=== PATIENT | female | born 1990 | race Hispanic/Latino ===

== ENCOUNTER 2022-10-21 11:16 | Inpatient (IN) | payer OTHER ==
[~2022-10-21] VITALS: Ht 182.9 cm; Wt 180.4 kg
[2022-10-21] MEDS ORDERED: ONDANSETRON 4MG INJ IV PRN (15:30)
[2022-10-21] MEDS ORDERED: ACETAMINOPHEN 325 MG TAB PO PRN ×2 (15:30)
[2022-10-21] MEDS: 0.9%NACL 1000ML 1,000 ML IV SCH (15:55)
[2022-10-21 16:01] LABS: BASOPHILS % (AUTO) 0.3 % (0.0-5.0); EOSINOPHILS % (AUTO) 0.5 % (0.0-8.0); HEMATOCRIT 33.2 % (36-48); LYMPHOCYTES % (AUTO) 20.6 % (21.0-51.0); MEAN CORPUSCULAR HEMOGLOBIN 23.6 pg (27.0-33.0); MEAN CORPUSCULAR HGB CONC 31.3 g/dL (32.0-36.0); MEAN CORPUSCULAR VOLUME 75.3 fL (79-99); MONOCYTES % (AUTO) 7.5 % (3.0-13.0); NEUTROPHILS % (AUTO) 70.7 % (40.0-77.0); PLATELET COUNT (AUTO) 284 K/uL (130-400); RED BLOOD CELL COUNT(AUTO) 4.41 MIL/uL (4.00-5.50); RED CELL DISTRIBUTION WIDTH 17.3 % (11.0-15.5); WHITE BLOOD COUNT (AUTO) 11.6 K/uL (4.8-10.8)
[2022-10-21] MEDS: HYDROMORPHONE 0.5 MG SYG (0.5MG/0.5ML) IVP PRN (16:02)
[2022-10-21 16:14] LABS: INR 1.03 (0.85-1.15); PROTHROMBIN TIME 11.2 SEC (9.6-11.6)
[2022-10-21 16:15] LABS: PARTIAL THROMBOPLASTIN TIME 27.1 SEC (26.3-35.5)
[2022-10-21 16:16] LABS: ALBUMIN 3.2 g/dL (3.5-5.0); CREATININE 0.7 mg/dL (0.5-1.5); POTASSIUM 3.8 mmol/L (3.5-5.1); TOTAL PROTEIN, SERUM 7.1 g/dL (6.0-8.3)
[2022-10-21] MEDS ORDERED: DULOXETINE HCL 30 MG CAP PO SCH (18:00)
[2022-10-21 20:03] VITALS: BP 138/68
[2022-10-21] MEDS: ZOSYN 3.375GM+NS 50ML 50 ML IVPB SCH (20:48)
[2022-10-21] MEDS: DEXAMETHASONE SOD PHOSPHATE 4 MG/ML 1ML VIAL IV SCH (20:48)
[2022-10-21] MEDS: PANTOPRAZOLE 40 MG/VIAL IVP SCH (20:48)
[2022-10-21] MEDS: BACLOFEN 10 MG TABLET PO SCH (20:53)
[2022-10-21] MEDS: GABAPENTIN 300 MG CAPSULE PO SCH (20:54)
[2022-10-21] MEDS ORDERED: FAMOTIDINE 20MG VIAL IV SCH (21:00)
[2022-10-21 23:49] VITALS: BP 127/78
[2022-10-22] MEDS: 0.9%NACL 1000ML 1,000 ML IV SCH ×3 (04:09→17:03)
[2022-10-22] MEDS: ZOSYN 3.375GM+NS 50ML 50 ML IVPB SCH ×3 (04:09→21:11)
[2022-10-22 04:25] VITALS: BP 141/70
[2022-10-22 08:00] VITALS: BP 129/64
[2022-10-22] MEDS: LIDOCAINE 5% TOPICAL PATCH TP SCH (08:55)
[2022-10-22] MEDS: DEXAMETHASONE SOD PHOSPHATE 4 MG/ML 1ML VIAL IV SCH ×3 (08:56→21:11)
[2022-10-22] MEDS: DULOXETINE HCL 30 MG CAP PO SCH (08:56)
[2022-10-22] MEDS: HYDROMORPHONE 0.5 MG SYG (0.5MG/0.5ML) IVP PRN ×3 (08:56→23:03)
[2022-10-22] MEDS: PANTOPRAZOLE 40 MG/VIAL IVP SCH ×2 (08:56→21:11)
[2022-10-22] MEDS: GABAPENTIN 300 MG CAPSULE PO SCH ×3 (08:57→21:11)
[2022-10-22] MEDS: BACLOFEN 10 MG TABLET PO SCH ×3 (09:13→21:11)
[2022-10-22] MEDS ORDERED: GADOTERATE MEGLUMINE 10 MMOL/20 ML VIAL IV ONE (10:01)
[2022-10-22 11:37] LABS: BASOPHILS % (AUTO) 0.1 % (0.0-5.0); EOSINOPHILS % (AUTO) 0.2 % (0.0-8.0); HEMATOCRIT 37.5 % (36-48); LYMPHOCYTES % (AUTO) 10.5 % (21.0-51.0); MEAN CORPUSCULAR HEMOGLOBIN 23.6 pg (27.0-33.0); MEAN CORPUSCULAR HGB CONC 31.2 g/dL (32.0-36.0); MEAN CORPUSCULAR VOLUME 75.8 fL (79-99); MONOCYTES % (AUTO) 1.9 % (3.0-13.0); NEUTROPHILS % (AUTO) 86.9 % (40.0-77.0); PLATELET COUNT (AUTO) 215 K/uL (130-400); RED BLOOD CELL COUNT(AUTO) 4.95 MIL/uL (4.00-5.50)
[2022-10-22 11:45] VITALS: BP 111/65
[2022-10-22 11:47] LABS: CREATININE 0.9 mg/dL (0.5-1.5); POTASSIUM 4.1 mmol/L (3.5-5.1)
[2022-10-22 11:51] LABS: ALBUMIN 3.1 g/dL (3.5-5.0); MAGNESIUM 1.9 mg/dL (1.80-2.40); PHOSPHORUS 1.9 mg/dL (2.5-4.9); TOTAL PROTEIN, SERUM 7.7 g/dL (6.0-8.3)
[2022-10-22] MEDS ORDERED: 0.9%NACL 1000ML 1,000 ML IV SCH (14:00)
[2022-10-22] MEDS: NEUTRA-PHOS PACKET 1 EACH PO SCH ×3 (14:07→21:19)
[2022-10-22 16:00] VITALS: BP 128/74
[2022-10-22 16:17] LABS: CREATININE 0.7 mg/dL (0.5-1.5)
[2022-10-22 20:00] VITALS: BP 141/75
[2022-10-23] VITALS: BP 127/68
[2022-10-23] MEDS: 0.9%NACL 1000ML 1,000 ML IV SCH ×2 (02:09→11:07)
[2022-10-23 04:00] VITALS: BP 137/69
[2022-10-23] MEDS: ZOSYN 3.375GM+NS 50ML 50 ML IVPB SCH (05:07)
[2022-10-23 08:00] VITALS: BP 129/78
[2022-10-23] MEDS: PANTOPRAZOLE 40 MG/VIAL IVP SCH ×2 (10:48→21:23)
[2022-10-23] MEDS: DULOXETINE HCL 30 MG CAP PO SCH (10:48)
[2022-10-23] MEDS: NEUTRA-PHOS PACKET 1 EACH PO SCH ×3 (10:48→16:48)
[2022-10-23] MEDS: DEXAMETHASONE SOD PHOSPHATE 4 MG/ML 1ML VIAL IV SCH ×3 (10:48→21:23)
[2022-10-23] MEDS: GABAPENTIN 300 MG CAPSULE PO SCH ×3 (10:49→21:24)
[2022-10-23] MEDS: BACLOFEN 10 MG TABLET PO SCH ×3 (10:49→21:24)
[2022-10-23] MEDS: LIDOCAINE 5% TOPICAL PATCH TP SCH (10:51)
[2022-10-23] MEDS: HYDROMORPHONE 0.5 MG SYG (0.5MG/0.5ML) IVP PRN ×2 (10:52→17:14)
[2022-10-23 11:48] VITALS: BP 124/74
[2022-10-23] MEDS ORDERED: VANCOMYCIN 1G/250ML KIT 250 ML IV SCH (12:30)
[2022-10-23] MEDS ORDERED: RENAL DOSE IV SCH ×2 (12:30)
[2022-10-23] MEDS ORDERED: VANCOMYCIN PROTOCOL PER PHARMACY IV SCH (12:30)
[2022-10-23] MEDS ORDERED: VANCOMYCIN PROTOCOL PER PHARMACY IV PRN (12:30)
[2022-10-23 12:34] LABS: BASOPHILS % (AUTO) 0.1 % (0.0-5.0); EOSINOPHILS % (AUTO) 0.1 % (0.0-8.0); HEMATOCRIT 32.9 % (36-48); LYMPHOCYTES % (AUTO) 11.5 % (21.0-51.0); MEAN CORPUSCULAR HEMOGLOBIN 23.1 pg (27.0-33.0); MEAN CORPUSCULAR HGB CONC 30.4 g/dL (32.0-36.0); MONOCYTES % (AUTO) 4.2 % (3.0-13.0); NEUTROPHILS % (AUTO) 83.4 % (40.0-77.0); PLATELET COUNT (AUTO) 294 K/uL (130-400); RED BLOOD CELL COUNT(AUTO) 4.33 MIL/uL (4.00-5.50); WHITE BLOOD COUNT (AUTO) 15.6 K/uL (4.8-10.8)
[2022-10-23 12:42] LABS: CREATININE 0.8 mg/dL (0.5-1.5)
[2022-10-23 12:46] LABS: ALBUMIN 2.9 g/dL (3.5-5.0); CRP QUANTITATIVE 33.3 mg/L (0.00-9.0); MAGNESIUM 1.8 mg/dL (1.80-2.40); PHOSPHORUS 2.1 mg/dL (2.5-4.9); TOTAL PROTEIN, SERUM 6.8 g/dL (6.0-8.3)
[2022-10-23 13:38] LABS: ERYTHROCYTE SEDIMENTATION RATE 30 MM/HR (0-20)
[2022-10-23] MEDS ORDERED: PHARMACY COMMUNICATION MISC SCH (14:30)
[2022-10-23] MEDS: CEFEPIME HCL 1 GM VIAL IVP SCH ×2 (14:49→23:00)
[2022-10-23 16:00] VITALS: BP 134/74
[2022-10-23 20:00] VITALS: BP 137/72
[2022-10-24] VITALS (7 sets, daily range): BP systolic 127–159; BP diastolic 66–82
[2022-10-24] MEDS: HYDROMORPHONE 0.5 MG SYG (0.5MG/0.5ML) IVP PRN ×4 (02:18→20:46)
[2022-10-24 06:02] LABS: BASOPHILS % (AUTO) 0.1 % (0.0-5.0); EOSINOPHILS % (AUTO) 0.1 % (0.0-8.0); HEMATOCRIT 30.9 % (36-48); LYMPHOCYTES % (AUTO) 13.9 % (21.0-51.0); MEAN CORPUSCULAR HEMOGLOBIN 23.7 pg (27.0-33.0); MEAN CORPUSCULAR HGB CONC 31.4 g/dL (32.0-36.0); MEAN CORPUSCULAR VOLUME 75.6 fL (79-99); MONOCYTES % (AUTO) 4.9 % (3.0-13.0); NEUTROPHILS % (AUTO) 80.4 % (40.0-77.0); PLATELET COUNT (AUTO) 269 K/uL (130-400); RED BLOOD CELL COUNT(AUTO) 4.09 MIL/uL (4.00-5.50); RED CELL DISTRIBUTION WIDTH 17.1 % (11.0-15.5); WHITE BLOOD COUNT (AUTO) 13.1 K/uL (4.8-10.8)
[2022-10-24 06:16] LABS: ALBUMIN 2.7 g/dL (3.5-5.0); CREATININE 0.8 mg/dL (0.5-1.5); CRP QUANTITATIVE 13.3 mg/L (0.00-9.0); MAGNESIUM 1.7 mg/dL (1.80-2.40); PHOSPHORUS 3.2 mg/dL (2.5-4.9); POTASSIUM 4.1 mmol/L (3.5-5.1); TOTAL PROTEIN, SERUM 6.4 g/dL (6.0-8.3)
[2022-10-24] MEDS: CEFEPIME HCL 1 GM VIAL IVP SCH ×3 (06:55→23:11)
[2022-10-24 07:06] LABS: ERYTHROCYTE SEDIMENTATION RATE 18 MM/HR (0-20)
[2022-10-24] MEDS: ENOXAPARIN SODIUM 40 MG/0.4 ML SYRINGE SQ SCH (10:05)
[2022-10-24] MEDS: DEXAMETHASONE SOD PHOSPHATE 4 MG/ML 1ML VIAL IV SCH ×3 (10:05→20:45)
[2022-10-24] MEDS: BACLOFEN 10 MG TABLET PO SCH ×3 (10:05→20:46)
[2022-10-24] MEDS: DULOXETINE HCL 30 MG CAP PO SCH (10:05)
[2022-10-24] MEDS: LIDOCAINE 5% TOPICAL PATCH TP SCH (10:05)
[2022-10-24] MEDS: PANTOPRAZOLE 40 MG/VIAL IVP SCH ×2 (10:05→20:45)
[2022-10-24] MEDS: GABAPENTIN 300 MG CAPSULE PO SCH ×3 (10:05→20:45)
[2022-10-24] MEDS: MAGNESIUM 2GM PREMIX 50ML 50 ML IV PRN (15:35)
[2022-10-25 04:38] VITALS: BP 162/85
[2022-10-25] MEDS: CEFEPIME HCL 1 GM VIAL IVP SCH ×2 (06:17→15:52)
[2022-10-25 08:02] VITALS: BP 150/78
[2022-10-25] MEDS: VANCOMYCIN 2GM/500 ML BAG 500 ML IV SCH ×2 (08:44→21:47)
[2022-10-25] MEDS: PANTOPRAZOLE 40 MG/VIAL IVP SCH ×2 (08:44→21:45)
[2022-10-25] MEDS: DEXAMETHASONE SOD PHOSPHATE 4 MG/ML 1ML VIAL IV SCH ×3 (08:44→21:45)
[2022-10-25] MEDS: GABAPENTIN 300 MG CAPSULE PO SCH ×3 (08:45→21:46)
[2022-10-25] MEDS: BACLOFEN 10 MG TABLET PO SCH ×3 (08:45→21:46)
[2022-10-25] MEDS: DULOXETINE HCL 30 MG CAP PO SCH (08:45)
[2022-10-25] MEDS: HYDROMORPHONE 0.5 MG SYG (0.5MG/0.5ML) IVP PRN ×3 (08:45→21:46)
[2022-10-25] MEDS: LIDOCAINE 5% TOPICAL PATCH TP SCH (08:46)
[2022-10-25] MEDS: ENOXAPARIN SODIUM 40 MG/0.4 ML SYRINGE SQ SCH (08:46)
[2022-10-25 11:26] VITALS: BP 141/71
[2022-10-25 16:27] VITALS: BP 149/61
[2022-10-25 20:00] VITALS: BP 142/68
[2022-10-26] VITALS: BP 168/78
[2022-10-26] MEDS: CEFEPIME HCL 1 GM VIAL IVP SCH ×4 (00:03→22:45)
[2022-10-26] MEDS: HYDROMORPHONE 0.5 MG SYG (0.5MG/0.5ML) IVP PRN ×3 (03:42→14:34)
[2022-10-26 04:00] VITALS: BP 174/85
[2022-10-26 07:52] VITALS: BP 158/62
[2022-10-26] MEDS: DULOXETINE HCL 30 MG CAP PO SCH (08:03)
[2022-10-26] MEDS: LIDOCAINE 5% TOPICAL PATCH TP SCH (08:03)
[2022-10-26] MEDS: DEXAMETHASONE SOD PHOSPHATE 4 MG/ML 1ML VIAL IV SCH ×3 (08:03→21:25)
[2022-10-26] MEDS: PANTOPRAZOLE 40 MG/VIAL IVP SCH ×2 (08:03→21:23)
[2022-10-26] MEDS: VANCOMYCIN 2GM/500 ML BAG 500 ML IV SCH ×2 (08:03→21:23)
[2022-10-26] MEDS: BACLOFEN 10 MG TABLET PO SCH ×3 (08:03→21:23)
[2022-10-26] MEDS: MAGNESIUM 2GM PREMIX 50ML 50 ML IV PRN (08:04)
[2022-10-26] MEDS: ENOXAPARIN SODIUM 40 MG/0.4 ML SYRINGE SQ SCH (08:04)
[2022-10-26] MEDS: GABAPENTIN 300 MG CAPSULE PO SCH ×3 (08:08→21:24)
[2022-10-26 11:09] VITALS: BP 138/52
[2022-10-26 16:41] VITALS: BP 137/59
[2022-10-26 20:00] VITALS: BP 138/54
[2022-10-26] MEDS ORDERED: HYDROMORPHONE 0.5 MG SYG (0.5MG/0.5ML) ONE (22:30)
[2022-10-26] MEDS ORDERED: SENNOSIDES 8.6 MG TABLET PO PRN (22:30)
[2022-10-27] VITALS: BP 155/80
[2022-10-27 04:00] VITALS: BP 172/92
[2022-10-27 07:31] VITALS: BP 126/60
[2022-10-27] MEDS: CEFEPIME HCL 1 GM VIAL IVP SCH ×3 (09:00→23:07)
[2022-10-27] MEDS: VANCOMYCIN 2GM/500 ML BAG 500 ML IV SCH ×2 (09:02→21:11)
[2022-10-27] MEDS: DEXAMETHASONE SOD PHOSPHATE 4 MG/ML 1ML VIAL IV SCH ×3 (09:04→21:12)
[2022-10-27] MEDS: PANTOPRAZOLE 40 MG/VIAL IVP SCH ×2 (09:05→21:12)
[2022-10-27] MEDS: HYDROMORPHONE 0.5 MG SYG (0.5MG/0.5ML) IVP PRN ×3 (09:07→21:12)
[2022-10-27] MEDS: POLYETHYLENE GLYCOL 3350 17 GM POWD.PACK PO SCH (09:08)
[2022-10-27] MEDS: DULOXETINE HCL 30 MG CAP PO SCH (09:08)
[2022-10-27] MEDS: BACLOFEN 10 MG TABLET PO SCH ×3 (09:09→21:12)
[2022-10-27] MEDS: ENOXAPARIN SODIUM 40 MG/0.4 ML SYRINGE SQ SCH (09:09)
[2022-10-27] MEDS: LIDOCAINE 5% TOPICAL PATCH TP SCH (09:09)
[2022-10-27] MEDS: GABAPENTIN 300 MG CAPSULE PO SCH ×3 (09:10→21:11)
[2022-10-27 10:39] VITALS: BP 111/48
[2022-10-27 15:35] VITALS: BP 143/70
[2022-10-27 20:45] VITALS: BP 147/79
[2022-10-28 00:08] VITALS: BP 152/71
[2022-10-28 04:27] VITALS: BP 156/77
[2022-10-28] MEDS: HYDROMORPHONE 0.5 MG SYG (0.5MG/0.5ML) IVP PRN ×4 (04:48→20:09)
[2022-10-28 04:55] LABS: BASOPHILS % (AUTO) 0.1 % (0.0-5.0); EOSINOPHILS % (AUTO) 0.1 % (0.0-8.0); HEMATOCRIT 35.6 % (36-48); MEAN CORPUSCULAR HEMOGLOBIN 23.2 pg (27.0-33.0); MEAN CORPUSCULAR HGB CONC 32.3 g/dL (32.0-36.0); MEAN CORPUSCULAR VOLUME 71.9 fL (79-99); MONOCYTES % (AUTO) 6.6 % (3.0-13.0); NEUTROPHILS % (AUTO) 75.3 % (40.0-77.0); NUCLEATED RED BLOOD CELLS 0.2 % (0.0-0.19); PLATELET COUNT (AUTO) 320 K/uL (130-400); RED BLOOD CELL COUNT(AUTO) 4.95 MIL/uL (4.00-5.50); RED CELL DISTRIBUTION WIDTH 16.4 % (11.0-15.5); WHITE BLOOD COUNT (AUTO) 15.9 K/uL (4.8-10.8)
[2022-10-28 05:08] LABS: CREATININE 0.9 mg/dL (0.5-1.5)
[2022-10-28 05:09] LABS: MAGNESIUM 1.8 mg/dL (1.80-2.40); PHOSPHORUS 4.3 mg/dL (2.5-4.9)
[2022-10-28] MEDS: MAGNESIUM 2GM PREMIX 50ML 50 ML IV PRN (05:26)
[2022-10-28] MEDS: CEFEPIME HCL 1 GM VIAL IVP SCH ×2 (06:43→15:17)
[2022-10-28] MEDS: PANTOPRAZOLE 40 MG/VIAL IVP SCH ×2 (09:15→19:56)
[2022-10-28] MEDS: DULOXETINE HCL 30 MG CAP PO SCH (09:15)
[2022-10-28] MEDS: GABAPENTIN 300 MG CAPSULE PO SCH ×3 (09:16→20:07)
[2022-10-28] MEDS: BACLOFEN 10 MG TABLET PO SCH ×3 (09:16→20:07)
[2022-10-28] MEDS: VANCOMYCIN 2GM/500 ML BAG 500 ML IV SCH ×2 (09:16→19:56)
[2022-10-28] MEDS: DEXAMETHASONE SOD PHOSPHATE 4 MG/ML 1ML VIAL IV SCH ×3 (09:16→20:07)
[2022-10-28] MEDS: LIDOCAINE 5% TOPICAL PATCH TP SCH (09:17)
[2022-10-28] MEDS: POLYETHYLENE GLYCOL 3350 17 GM POWD.PACK PO SCH (09:17)
[2022-10-28] MEDS: ENOXAPARIN SODIUM 40 MG/0.4 ML SYRINGE SQ SCH (09:30)
[2022-10-28 11:53] VITALS: BP 135/77
[2022-10-28 16:00] VITALS: BP 144/72
[2022-10-28 20:20] VITALS: BP 148/74
[2022-10-28 23:26] VITALS: BP 130/70
[2022-10-29] MEDS: CEFEPIME HCL 1 GM VIAL IVP SCH ×4 (01:03→22:25)
[2022-10-29] MEDS: HYDROMORPHONE 0.5 MG SYG (0.5MG/0.5ML) IVP PRN ×5 (01:04→20:01)
[2022-10-29 03:51] VITALS: BP 140/82
[2022-10-29 05:18] LABS: BASOPHILS % (AUTO) 0.2 % (0.0-5.0); HEMATOCRIT 34.4 % (36-48); LYMPHOCYTES % (AUTO) 13.9 % (21.0-51.0); MEAN CORPUSCULAR HEMOGLOBIN 23.6 pg (27.0-33.0); MEAN CORPUSCULAR HGB CONC 32.8 g/dL (32.0-36.0); MEAN CORPUSCULAR VOLUME 71.8 fL (79-99); MONOCYTES % (AUTO) 7.9 % (3.0-13.0); NEUTROPHILS % (AUTO) 75.9 % (40.0-77.0); NUCLEATED RED BLOOD CELLS 0.1 % (0.0-0.19); PLATELET COUNT (AUTO) 301 K/uL (130-400); RED BLOOD CELL COUNT(AUTO) 4.79 MIL/uL (4.00-5.50); RED CELL DISTRIBUTION WIDTH 16.6 % (11.0-15.5); WHITE BLOOD COUNT (AUTO) 17.8 K/uL (4.8-10.8)
[2022-10-29 05:42] LABS: CREATININE 0.8 mg/dL (0.5-1.5); POTASSIUM 4.5 mmol/L (3.5-5.1)
[2022-10-29] MEDS: DEXAMETHASONE SOD PHOSPHATE 4 MG/ML 1ML VIAL IV SCH ×3 (08:50→19:45)
[2022-10-29] MEDS: POLYETHYLENE GLYCOL 3350 17 GM POWD.PACK PO SCH (08:50)
[2022-10-29] MEDS: PANTOPRAZOLE 40 MG/VIAL IVP SCH ×2 (08:50→19:45)
[2022-10-29] MEDS: VANCOMYCIN 2GM/500 ML BAG 500 ML IV SCH ×2 (08:50→19:45)
[2022-10-29] MEDS: GABAPENTIN 300 MG CAPSULE PO SCH ×3 (08:50→19:46)
[2022-10-29] MEDS: BACLOFEN 10 MG TABLET PO SCH ×3 (08:50→19:45)
[2022-10-29] MEDS: DULOXETINE HCL 30 MG CAP PO SCH (08:50)
[2022-10-29] MEDS: ENOXAPARIN SODIUM 40 MG/0.4 ML SYRINGE SQ SCH (08:51)
[2022-10-29] MEDS: LIDOCAINE 5% TOPICAL PATCH TP SCH (08:51)
[2022-10-29 09:17] VITALS: BP 144/70
[2022-10-29 09:26] LABS: INR 1.04 (0.85-1.15); PROTHROMBIN TIME 11.3 SEC (9.6-11.6)
[2022-10-29 09:27] LABS: PARTIAL THROMBOPLASTIN TIME 24.5 SEC (26.3-35.5)
[2022-10-29 11:35] VITALS: BP 154/78
[2022-10-29 16:47] VITALS: BP 148/87
[2022-10-29 20:17] VITALS: BP 143/81
[2022-10-29 23:19] VITALS: BP 148/79
[2022-10-30] MEDS: HYDROMORPHONE 0.5 MG SYG (0.5MG/0.5ML) IVP PRN ×5 (02:18→19:56)
[2022-10-30 03:51] VITALS: BP 116/59
[2022-10-30] MEDS: CEFEPIME HCL 1 GM VIAL IVP SCH ×3 (06:22→22:38)
[2022-10-30 06:29] LABS: BASOPHILS % (AUTO) 0.1 % (0.0-5.0); HEMATOCRIT 35.9 % (36-48); LYMPHOCYTES % (AUTO) 15.2 % (21.0-51.0); MEAN CORPUSCULAR HEMOGLOBIN 23.2 pg (27.0-33.0); MEAN CORPUSCULAR HGB CONC 31.2 g/dL (32.0-36.0); MEAN CORPUSCULAR VOLUME 74.3 fL (79-99); MONOCYTES % (AUTO) 9.5 % (3.0-13.0); NEUTROPHILS % (AUTO) 71.9 % (40.0-77.0); PLATELET COUNT (AUTO) 305 K/uL (130-400); RED BLOOD CELL COUNT(AUTO) 4.83 MIL/uL (4.00-5.50); RED CELL DISTRIBUTION WIDTH 16.8 % (11.0-15.5); WHITE BLOOD COUNT (AUTO) 18.4 K/uL (4.8-10.8)
[2022-10-30 06:45] LABS: CREATININE 0.9 mg/dL (0.5-1.5); POTASSIUM 4.3 mmol/L (3.5-5.1)
[2022-10-30] MEDS: VANCOMYCIN 2GM/500 ML BAG 500 ML IV SCH (07:04)
[2022-10-30 08:00] VITALS: BP 131/79
[2022-10-30] MEDS: POLYETHYLENE GLYCOL 3350 17 GM POWD.PACK PO SCH (08:48)
[2022-10-30] MEDS: DULOXETINE HCL 30 MG CAP PO SCH (08:48)
[2022-10-30] MEDS: ENOXAPARIN SODIUM 40 MG/0.4 ML SYRINGE SQ SCH (08:48)
[2022-10-30] MEDS: BACLOFEN 10 MG TABLET PO SCH ×3 (08:48→19:55)
[2022-10-30] MEDS: PANTOPRAZOLE 40 MG/VIAL IVP SCH ×2 (08:49→19:55)
[2022-10-30] MEDS: GABAPENTIN 300 MG CAPSULE PO SCH ×3 (08:49→19:54)
[2022-10-30] MEDS: LIDOCAINE 5% TOPICAL PATCH TP SCH (08:49)
[2022-10-30] MEDS: DEXAMETHASONE SOD PHOSPHATE 4 MG/ML 1ML VIAL IV SCH ×3 (08:49→19:55)
[2022-10-30 11:38] VITALS: BP 128/77
[2022-10-30] MEDS: VANCOMYCIN 1.75 GM/250 ML BAG 250 ML IV SCH ×2 (14:31→21:05)
[2022-10-30 16:01] VITALS: BP 120/68
[2022-10-30 20:00] VITALS: BP 139/85
[2022-10-30 23:21] VITALS: BP 158/90
[2022-10-31] MEDS: HYDROMORPHONE 0.5 MG SYG (0.5MG/0.5ML) IVP PRN ×4 (02:28→20:53)
[2022-10-31 04:00] VITALS: BP 140/86
[2022-10-31] MEDS: VANCOMYCIN 1.75 GM/250 ML BAG 250 ML IV SCH ×3 (06:05→20:52)
[2022-10-31] MEDS: CEFEPIME HCL 1 GM VIAL IVP SCH ×3 (07:22→23:45)
[2022-10-31 08:00] VITALS: BP 118/76
[2022-10-31] MEDS: POLYETHYLENE GLYCOL 3350 17 GM POWD.PACK PO SCH (09:10)
[2022-10-31] MEDS: PANTOPRAZOLE 40 MG/VIAL IVP SCH ×2 (09:10→20:49)
[2022-10-31] MEDS: DEXAMETHASONE SOD PHOSPHATE 4 MG/ML 1ML VIAL IV SCH ×3 (09:10→20:49)
[2022-10-31] MEDS: BACLOFEN 10 MG TABLET PO SCH ×3 (09:11→20:50)
[2022-10-31] MEDS: DULOXETINE HCL 30 MG CAP PO SCH (09:11)
[2022-10-31] MEDS: GABAPENTIN 300 MG CAPSULE PO SCH ×3 (09:11→20:51)
[2022-10-31] MEDS: ENOXAPARIN SODIUM 40 MG/0.4 ML SYRINGE SQ SCH (09:12)
[2022-10-31] MEDS: LIDOCAINE 5% TOPICAL PATCH TP SCH (09:12)
[2022-10-31] MEDS: AMLODIPINE 5 MG TAB PO SCH (09:17)
[2022-10-31 11:00] VITALS: BP 112/66
[2022-10-31] MEDS ORDERED: NITROGLYCERIN 0.4 MG SL TAB SL ONE (14:39)
[2022-10-31] MEDS ORDERED: NITROGLYCERIN 0.4 MG SL TAB SL PRN (15:00)
[2022-10-31 16:00] VITALS: BP 120/71
[2022-10-31 20:07] VITALS: BP 126/73
[2022-11-01] MEDS ORDERED: HYDROMORPHONE 0.5 MG SYG (0.5MG/0.5ML) IVP ONE (03:00)
[2022-11-01 04:54] VITALS: BP 129/70
[2022-11-01] MEDS: VANCOMYCIN 1.75 GM/250 ML BAG 250 ML IV SCH ×3 (06:12→22:10)
[2022-11-01] MEDS: CEFEPIME HCL 1 GM VIAL IVP SCH ×3 (07:50→23:22)
[2022-11-01 07:54] VITALS: BP 108/63
[2022-11-01] MEDS: BACLOFEN 10 MG TABLET PO SCH ×3 (10:57→21:11)
[2022-11-01] MEDS: AMLODIPINE 5 MG TAB PO SCH (10:57)
[2022-11-01] MEDS: LIDOCAINE 5% TOPICAL PATCH TP SCH (10:57)
[2022-11-01] MEDS: POLYETHYLENE GLYCOL 3350 17 GM POWD.PACK PO SCH (10:57)
[2022-11-01] MEDS: DULOXETINE HCL 30 MG CAP PO SCH (10:57)
[2022-11-01] MEDS: ENOXAPARIN SODIUM 40 MG/0.4 ML SYRINGE SQ SCH (10:58)
[2022-11-01] MEDS: GABAPENTIN 300 MG CAPSULE PO SCH ×3 (10:58→21:09)
[2022-11-01] MEDS: PANTOPRAZOLE 40 MG/VIAL IVP SCH ×2 (10:58→21:11)
[2022-11-01] MEDS ORDERED: HYDROCODONE/ACETAMINOPHEN 5/325 MG TAB PO PRN (11:00)
[2022-11-01] MEDS ORDERED: HYDROCODONE/ACETAMINOPHEN 7.5/325 MG TAB PO PRN (11:00)
[2022-11-01 11:42] VITALS: BP 101/61
[2022-11-01 16:00] VITALS: BP 105/61
[2022-11-01 20:24] VITALS: BP 117/59
[2022-11-01] MEDS: TRAMADOL HCL 50 MG TABLET PO PRN (21:08)
[2022-11-01 23:43] VITALS: BP 115/66
[2022-11-02 04:11] VITALS: BP 110/65
[2022-11-02] MEDS: CEFEPIME HCL 1 GM VIAL IVP SCH ×3 (06:39→23:44)
[2022-11-02] MEDS: BACLOFEN 10 MG TABLET PO SCH ×3 (06:40→21:30)
[2022-11-02] MEDS: GABAPENTIN 300 MG CAPSULE PO SCH ×3 (06:41→21:32)
[2022-11-02] MEDS: VANCOMYCIN 1.75 GM/250 ML BAG 250 ML IV SCH (07:34)
[2022-11-02 08:00] VITALS: BP 107/56
[2022-11-02] MEDS: POLYETHYLENE GLYCOL 3350 17 GM POWD.PACK PO SCH (08:21)
[2022-11-02] MEDS: DULOXETINE HCL 30 MG CAP PO SCH (08:21)
[2022-11-02] MEDS: LIDOCAINE 5% TOPICAL PATCH TP SCH (08:21)
[2022-11-02] MEDS: PANTOPRAZOLE 40 MG/VIAL IVP SCH ×2 (08:21→21:32)
[2022-11-02] MEDS: AMLODIPINE 5 MG TAB PO SCH (08:21)
[2022-11-02] MEDS: TRAMADOL HCL 50 MG TABLET PO PRN ×3 (08:21→21:31)
[2022-11-02] MEDS: ENOXAPARIN SODIUM 40 MG/0.4 ML SYRINGE SQ SCH (08:22)
[2022-11-02 11:56] VITALS: BP 104/55
[2022-11-02] MEDS: VANCOMYCIN 1.5 GM/250 ML BAG 250 ML IV SCH ×2 (13:13→21:33)
[2022-11-02 16:00] VITALS: BP 114/70
[2022-11-02 19:00] VITALS: BP 118/68
[2022-11-03] VITALS: BP 98/57
[2022-11-03 04:00] VITALS: BP 112/67
[2022-11-03] MEDS: BACLOFEN 10 MG TABLET PO SCH ×3 (06:54→21:57)
[2022-11-03] MEDS: GABAPENTIN 300 MG CAPSULE PO SCH ×3 (06:54→21:57)
[2022-11-03] MEDS: CEFEPIME HCL 1 GM VIAL IVP SCH ×3 (06:54→22:59)
[2022-11-03 07:22] VITALS: BP 97/57
[2022-11-03] MEDS: VANCOMYCIN 1.5 GM/250 ML BAG 250 ML IV SCH ×3 (07:23→21:59)
[2022-11-03] MEDS: TRAMADOL HCL 50 MG TABLET PO PRN ×2 (07:43→17:11)
[2022-11-03] MEDS: LIDOCAINE 5% TOPICAL PATCH TP SCH (09:42)
[2022-11-03] MEDS: PANTOPRAZOLE 40 MG/VIAL IVP SCH ×2 (09:45→21:56)
[2022-11-03] MEDS: POLYETHYLENE GLYCOL 3350 17 GM POWD.PACK PO SCH (09:45)
[2022-11-03] MEDS: DULOXETINE HCL 30 MG CAP PO SCH (09:45)
[2022-11-03] MEDS: ENOXAPARIN SODIUM 40 MG/0.4 ML SYRINGE SQ SCH (09:46)
[2022-11-03 10:50] VITALS: BP 117/69
[2022-11-03] MEDS: AMLODIPINE 5 MG TAB PO SCH (14:00)
[2022-11-03 15:53] VITALS: BP 109/55
[2022-11-03 19:00] VITALS: BP 123/61
[2022-11-03 19:49] LABS: % IRON SATURATION 11.5 % (22-44)
[2022-11-03 19:55] LABS: BASOPHILS % (AUTO) 0.2 % (0.0-5.0); EOSINOPHILS % (AUTO) 1.6 % (0.0-8.0); LYMPHOCYTES % (AUTO) 23.4 % (21.0-51.0); MEAN CORPUSCULAR HEMOGLOBIN 23.5 pg (27.0-33.0); MEAN CORPUSCULAR HGB CONC 31.1 g/dL (32.0-36.0); MEAN CORPUSCULAR VOLUME 75.5 fL (79-99); MONOCYTES % (AUTO) 8.3 % (3.0-13.0); NEUTROPHILS % (AUTO) 64.7 % (40.0-77.0); PLATELET COUNT (AUTO) 242 K/uL (130-400); RED BLOOD CELL COUNT(AUTO) 4.77 MIL/uL (4.00-5.50); RED CELL DISTRIBUTION WIDTH 18.2 % (11.0-15.5); WHITE BLOOD COUNT (AUTO) 14.5 K/uL (4.8-10.8)
[2022-11-03 20:09] LABS: POTASSIUM 4.3 mmol/L (3.5-5.1)
[2022-11-03 20:19] LABS: CRP QUANTITATIVE 8.4 mg/L (0.00-9.0); PHOSPHORUS 4.4 mg/dL (2.5-4.9)
[2022-11-03 20:58] LABS: ERYTHROCYTE SEDIMENTATION RATE 8 MM/HR (0-20)
[2022-11-04] VITALS: BP 120/72
[2022-11-04 04:00] VITALS: BP 116/66
[2022-11-04] MEDS: BACLOFEN 10 MG TABLET PO SCH (05:14)
[2022-11-04] MEDS: TRAMADOL HCL 50 MG TABLET PO PRN ×3 (05:18→12:19)
[2022-11-04] MEDS: GABAPENTIN 300 MG CAPSULE PO SCH (05:18)
[2022-11-04] MEDS: VANCOMYCIN 1.5 GM/250 ML BAG 250 ML IV SCH (05:19)
[2022-11-04 06:31] LABS: BASOPHILS % (AUTO) 0.3 % (0.0-5.0); EOSINOPHILS % (AUTO) 1.8 % (0.0-8.0); HEMATOCRIT 38.5 % (36-48); LYMPHOCYTES % (AUTO) 25.9 % (21.0-51.0); MEAN CORPUSCULAR HEMOGLOBIN 23.2 pg (27.0-33.0); MEAN CORPUSCULAR HGB CONC 30.4 g/dL (32.0-36.0); MEAN CORPUSCULAR VOLUME 76.4 fL (79-99); MONOCYTES % (AUTO) 9.9 % (3.0-13.0); NEUTROPHILS % (AUTO) 59.9 % (40.0-77.0); PLATELET COUNT (AUTO) 172 K/uL (130-400); RED BLOOD CELL COUNT(AUTO) 5.04 MIL/uL (4.00-5.50); RED CELL DISTRIBUTION WIDTH 18.5 % (11.0-15.5); WHITE BLOOD COUNT (AUTO) 14.5 K/uL (4.8-10.8)
[2022-11-04 07:04] LABS: CREATININE 0.9 mg/dL (0.5-1.5); MAGNESIUM 2.1 mg/dL (1.80-2.40); PHOSPHORUS 4.4 mg/dL (2.5-4.9); POTASSIUM 4.4 mmol/L (3.5-5.1)
[2022-11-04] MEDS: CEFEPIME HCL 1 GM VIAL IVP SCH (07:23)
[2022-11-04 08:00] VITALS: BP 125/71
[2022-11-04] MEDS: ENOXAPARIN SODIUM 40 MG/0.4 ML SYRINGE SQ SCH (09:00)
[2022-11-04] MEDS: POLYETHYLENE GLYCOL 3350 17 GM POWD.PACK PO SCH (09:00)
[2022-11-04] MEDS: AMLODIPINE 5 MG TAB PO SCH (09:00)
[2022-11-04] MEDS: PANTOPRAZOLE 40 MG/VIAL IVP SCH (09:00)
[2022-11-04] MEDS: LIDOCAINE 5% TOPICAL PATCH TP SCH (09:00)
[2022-11-04] MEDS: DULOXETINE HCL 30 MG CAP PO SCH (09:00)
[2022-11-04] MEDS ORDERED: DULO60CA64 PO (10:17)
[2022-11-04] MEDS ORDERED: BACL5TAB PO (10:17)
[2022-11-04] MEDS ORDERED: SENN8.6T32 PO (10:17)
[2022-11-04] MEDS ORDERED: GABA600T10 PO (10:17)
[2022-11-04] MEDS ORDERED: TRAM50TA4 PO (10:17)
[2022-11-04] MEDS ORDERED: AMLO5TAB4 PO (10:17)
[2022-11-04 12:00] VITALS: BP 110/89
== END 2022-11-04 13:54 | disposition left against medical advice (07) | DRG 552 ==
LOC: OBSVTOIN 12:44 → 3CH 12:44
PROVIDERS: ADMIT Internal Medicine; ATTEND Internal Medicine
PROC: 02HV33Z Insertion of Infusion Device into Superior Vena Cava, Percutaneous Approach (ICD-10-PCS; principal; 2022-10-29)
DX: M54.16 Radiculopathy, lumbar region (principal); E87.20 Acidosis, unspecified; L02.416 Cutaneous abscess of left lower limb; Z68.43 Body mass index [BMI] 50.0-59.9, adult; D72.829 Elevated white blood cell count, unspecified; K80.20 Calculus of gallbladder without cholecystitis without obstruction; M19.90 Unspecified osteoarthritis, unspecified site; M47.816 Spondylosis without myelopathy or radiculopathy, lumbar region; E66.01 Morbid (severe) obesity due to excess calories; Z76.5 Malingerer [conscious simulation]; Z56.0 Unemployment, unspecified; Z91.199 Patient's noncompliance with other medical treatment and regimen due to unspecified reason
CPT/HCPCS: 36415; 36569; 71045; 71100; 72141; 72158; 76882; 80048; 80053; 80202; 82550; 82607; 82728; 82746; 83540; 83550; 83605; 83735; 83874; 83930; 84100; 84145; 84484; 85025; 85045; 85610; 85651; 85730; 86140; 93005; 93306; 97039; C1894; C9113; G0378; J0692; J1100; J1170; J1650; J2543; J3370; J3475